=== PATIENT | female | born 1970 | race Caucasian/White ===

== ENCOUNTER 2018-08-30 14:00 | Emergency (ER) | payer OTHER, SELFPAY ==
--- NOTE | 2018-08-30 14:57 | RAD ---
RADIOGRAPH LEFT ANKLE 3 VIEWS: HISTORY: Pain FINDINGS: Ankle mortise is congruent. No fracture or dislocation. No high-grade DJD. Small enthesophytes at distal tip of medial malleolus. Moderate-sized enthesophyte at Achilles tendon insertion site, and p lantar fascia attachment, of calcaneus. Talar dome is maintained. No joint space narrowing of the a nkle mortise. IMPRESSION: 1. Minimal/mild degenerative changes. 2. No fracture. POS: [facility]
[2018-08-30] MEDS ORDERED: Ibuprofen 800 MG TAB ONE (15:40)
== END 2018-08-30 15:45 | disposition home or self-care (01) ==
LOC: ERS 14:00
DX: S93.402A Sprain of unspecified ligament of left ankle, initial encounter (principal); W17.89XA Other fall from one level to another, initial encounter

== ENCOUNTER 2018-11-18 15:28 | Outpatient (CLI) | payer OTHER ==
--- NOTE | 2018-11-18 16:00 | RAD ---
Exam:Left foot 3 views HISTORY: Cuboid fracture. COMPARISON: None Correlation: Left ankle radiograph 08/30/2018 FINDINGS: Lisfranc alignment is maintained. Joint spaces are preserved. No acute fracture. Chronic ch anges involving the Achilles tendon insertion site and the plantar aponeurosis insertion is once again demonstrated. IMPRESSION: No definite acute cuboid bone fracture.
== END 2018-11-18 15:29 | disposition home or self-care (01) ==
LOC: BICRAD 15:28
PROVIDERS: ATTEND Family Medicine
DX: S92.215D Nondisplaced fracture of cuboid bone of left foot, subsequent encounter for fracture with routine healing (principal)

== ENCOUNTER 2021-05-15 13:54 | Outpatient (CLI) | payer OTHER | END 2021-05-15 13:55 | disposition home or self-care (01) | LOC: BICMAMMO 13:54 | PROVIDERS: ATTEND Orthopaedic Surgery | DX: Z12.31 Encounter for screening mammogram for malignant neoplasm of breast (principal); Z13.820 Encounter for screening for osteoporosis; S82.64XA Nondisplaced fracture of lateral malleolus of right fibula, initial encounter for closed fracture; Z80.3 Family history of malignant neoplasm of breast | CPT/HCPCS: 77063; 77067; 77080 ==